=== PATIENT | male | born 1985 ===

== ENCOUNTER 2018-01-05 08:23 | Emergency (ER) | payer BC, OTHER ==
[2018-01-05 08:33] VITALS: BP 111/63; PULSE 62; RESP 20; TEMP 98.6
[2018-01-05 08:43] VITALS: O2SAT 98
[2018-01-05] MEDS ORDERED: Oxycodone/Acetaminophen 5/325 mg Tab PO ONE (09:21)
[2018-01-05] MEDS ORDERED: Oxycodone/Acetaminophen 5/325 mg Tab ONE (09:38)
--- NOTE | 2018-01-05 10:17 | ED PDOC ---
HPI: Back Time Seen by Provider: 01/05/18 08:53 Chief Complaint (Nursing): Back Pain Chief Complaint (Provider): Back pain History Per: Patient History/Exam Limitations: no limitations Onset/Duration Of Symptoms: Days (x1) Current Symptoms Are (Timing): Still Present Quality Of Discomfort: "Pain" Additional Complaint(s): Florentino Randhawa is a 32 year old male, with no significant past medical history, who presents to the emergency department complaining of right lower back pain onset since last night. Patient reports the pain radiates down the right buttocks and right leg. Patient states last night he took Motrin with relief. However, this morning he woke up with the pain again and had difficulty moving. He took Motrin 800mg today with minimal relief. He denies any new weakness, numbness or urinary symptoms. No further medical complaints. PMD: None provided. Past Medical History Reviewed: Historical Data, Nursing Documentation, Vital Signs Vital Signs: Last Vital Signs Temp 98.6 F 01/05/18 08:33 Pulse 62 01/05/18 08:33 Resp 20 01/05/18 08:33 BP 111/63 01/05/18 08:33 Pulse Ox 98 01/05/18 08:41 - Medical History PMH: Back Problems (sciatica), Fractures - Surgical History Surgical History: Tonsillectomy - Family History Family History: States: Unknown Family Hx - Social History Current smoker - smoking cessation education provided: No Alcohol: Social Drugs: Denies - Immunization History Hx Influenza Vaccination: Yes - Home Medications Home Medications: Ambulatory Orders Medication Instructions Recorded Methylprednisolone [Medrol Dose 4 mg PO ASDIR #21 mg 01/05/18 Pack (21 tabs)] oxyCODONE/Acetaminophen [Percocet 1 ea PO Q6 PRN #15 tab 01/05/18 5/325 mg Tab] - Allergies Allergies/Adverse Reactions: Allergies Allergy/AdvReac Type Severity Reaction Status Date / Time No Known Allergies Allergy Verified 01/05/18 08:40 Review of Systems ROS Statement: Except As Marked, All Systems Reviewed And Found Negative Genitourinary Male: Negative for: Dysuria, Frequency, Incontinence, Hematuria Musculoskeletal: Positive for: Back Pain (right lower that radiates down the right buttocks and leg), Leg Pain (right) Neurological: Negative for: Weakness, Numbness Physical Exam - Reviewed Nursing Documentation Reviewed: Yes Vital Signs Reviewed: Yes - Physical Exam Appears: Positive for: Well (comfortable), Non-toxic, No Acute Distress Head Exam: Positive for: ATRAUMATIC, NORMAL INSPECTION, NORMOCEPHALIC Skin: Positive for: Normal Color, Warm, Dry Eye Exam: Positive for: Normal appearance Neck: Positive for: Painless ROM Respiratory: Negative for: Respiratory Distress Gastrointestinal/Abdominal: Positive for: Normal Exam, Soft. Negative for: Tenderness, Guarding, Rebound Back: Positive for: Other (right lower buttock tenderness). Negative for: L CVA Tenderness, R CVA Tenderness Extremity: Positive for: Normal ROM (upper and lower extremities). Negative for : Tenderness, Deformity, Swelling Neurologic/Psych: Positive for: Alert, Oriented, Other (straight leg raise test positive). Negative for: Motor/Sensory Deficits - ECG O2 Sat by Pulse Oximetry: 98 (RA) Pulse Ox Interpretation: Normal - Progress Re-evaluation Time: 10:50 Condition: Re-examined, Improved Medical Decision Making Medical Decision Making: Initial Impression: Lower back pain and leg pain. Differential includes sciatica and lumbar radiculopathy. Initial Plan: --Urine dipstick --Flexeril 10 mg PO --Percocet 5/325mg tab 1 tab PO --reevaluation Scribe Attestation: Documented by Finn Weber, acting as a scribe for Ira Rascon MD Provider Scribe Attestation: All medical record entries made by the Scribe were at my direction and personally dictated by me. I have reviewed the chart and agree that the record accurately reflects my personal performance of the history, physical exam, medical decision making, and the department course for this patient. I have also personally directed, reviewed, and agree with the discharge instructions and disposition. Disposition - Clinical Impression Clinical Impression: Sciatica - Patient ED Disposition Is Patient to be Admitted: No Doctor Will See Patient In The: Office Counseled Patient/Family Regarding: Studies Performed, Diagnosis, Need For Followup - Disposition Referrals: [facility] [place] [Outside] Disposition: Routine/Home Disposition Time: 11:00 Condition: IMPROVED Additional Instructions: Take your medications as instructed. Follow up with your PCP in 2-3 days. Prescriptions: Methylprednisolone [Medrol Dose Pack (21 tabs)] 4 mg PO ASDIR #21 mg oxyCODONE/Acetaminophen [Percocet 5/325 mg Tab] 1 ea PO Q6 PRN #15 tab PRN Reason: Pain, Severe (8-10) Instructions: Sciatica (DC) Forms: [facility] ED School/Work Excuse
== END 2018-01-05 12:14 | disposition home or self-care (01) ==
LOC: H.ER 08:23
DX: M54.31 Sciatica, right side (principal)